=== PATIENT | male | born 1995 | race Caucasian/White ===

== ENCOUNTER 2025-06-06 09:17 | Outpatient (CLI) | payer BC, SELFPAY ==
[2025-06-06 10:27] LABS: Alanine Aminotransferase 62 U/L (6-50); Albumin Level 4.5 g/dL (3.5-5.1); Alkaline Phosphatase 77 U/L (38-126); Anion Gap 8 mmol/L (4-12); Aspartate Amino Transferase 40 U/L (17-59); Bilirubin,Total 0.6 mg/dL (0.2-1.3); Blood Urea Nitrogen 20 mg/dL (9-20); Calcium 9.1 mg/dL (8.4-10.2); Carbon Dioxide 28 mmol/L (22-30); Chloride 104 mmol/L (98-107); Cholesterol 235 mg/dL (0-200); Estimated Glomerular Filt Rate > 60; Glucose 92 mg/dL (65-110); HDL Direct 40 mg/dL; Potassium 4.5 mmol/L (3.4-5.0); Sodium 140 mmol/L (137-145); Total Protein 6.9 g/dL (6.3-8.2); Triglycerides 92 mg/dL (<150)
[2025-06-06 10:55] LABS: Thyroid Stimulating Hormone Reflex 1.240 uIU/mL (0.465-4.68)
== END 2025-06-06 09:18 | disposition home or self-care (01) ==
PROVIDERS: PCP Nurse Practitioner Family; Visit Provider Nurse Practitioner Family
DX: F90.9 Attention-deficit hyperactivity disorder, unspecified type (principal); Z68.27 Body mass index [BMI] 27.0-27.9, adult; Z13.220 Encounter for screening for lipoid disorders
CPT/HCPCS: 36415; 80053; 80061; 84443